=== PATIENT | female | born 1975 | race Caucasian/White ===

== ENCOUNTER 2018-05-17 12:29 | Emergency (ER) | payer OTHER ==
--- NOTE | 2018-05-17 13:42 | EDPHY ---
HPI/HX/ROS/PE/MDM Narrative: CHIEF COMPLAINT: Left arm injury HPI: The patient is a 42 y/o female arriving with her complaining of left arm pain secondary to a snowboarding collision this morning at [employer]. She was struck by another snowboarder and landed with her arm below her body. Her pain is localized to her proximal left forearm. She denies striking her head, losing consciousness, weakness, paresthesias, abdominal pain, chest pain, dyspnea, or any other injuries. She is generally healthy. REVIEW OF SYSTEMS: A comprehensive 10 system review of systems is otherwise negative aside from elements mentioned in the history of present illness. PMH: Denies SOCIAL HISTORY: at bedside. Employed. PHYSICAL EXAM: General:Patient is alert, in no acute distress. ENT:Eyes are normal to inspection. ENT inspection normal. Neck: Normal inspection. Full range of motion. Respiratory:No respiratory distress. Cardiovascular: Normal left radial pulse. Normal cap refill. Skin: Normal color. No rash. Warm and dry. Extremities: Left arm: tenderness to proximal radial forearm with overlying ecchymosis, no bony tenderness. Otherwise Normal appearance and full range of motion. No pain with passive/active ROM of hand/wrist. Neuro: Oriented x3. Normal motor function. Normal sensory function. ED Course: This is a healthy 42 y/o female who presents with isolated left forearm pain secondary to a collision and fall while snowboarding this morning at [employer]. She has tenderness along her radial proximal forearm with some overlying ecchymosis. There is no bony tenderness and she has normal motor and sensory function. Forearm x-rays were negative for fracture. Recommended discharge home in sling with standard contusion care and follow up instructions. She declined pain medication. Referral to ortho provided if needed and return precautions discussed. She is comfortable with this plan. MDM: Contusion without evidence of fracture or compartment syndrome. Considered occult radial head fracture, but no TTP in that region. - Data Points Imaging Results: Imaging Impressions Forearm X-Ray 05/17/18 12:38 Impression: Negative. No acute fracture. Imaging: I viewed and interpreted images myself General Time Seen by Provider: 05/17/18 13:33 Initial Vital Signs: Initial Vital Signs Temperature (C) 36.6 C 05/17/18 12:36 Heart Rate 63 05/17/18 12:36 Respiratory Rate 16 05/17/18 12:36 Blood Pressure 151/86 H 05/17/18 12:36 O2 Sat (%) 98 05/17/18 12:36 O2 Delivery Mode Room Air Allergies/Adverse Reactions: No Known Allergies Allergy (Unverified 05/17/18 12:38) Home Medications: Medication Instructions Recorded NK [No Known Home Meds] 05/17/18 Departure - Departure Disposition: Home, Routine, Self-Care Clinical Impression: Arm contusion Condition: Good Instructions: Contusion in Adults (ED) Additional Instructions: 1. Ibuprofen and Tylenol as directed on the packaging as needed for pain over the next few days. 2. Apply ice to sore areas intermittently over the next 1-2 days if helpful for pain. 3. Wear sling for comfort. 4. Follow up with orthopedist for unimproved symptoms over the next week. 5. Return to the ED for severe pain, weakness or numbness in your fingers, or other worsening of condition. Referrals: Sarbjit Gutierrez MD [Medical Doctor] - As per Instructions Report Scribed for: Noel Lagos Report Scribed by: Kristi Man Date of Report: 05/17/18 Time of Report: 13:48 Physician Review and Approval Statement: Portions of this note were transcribed by an ED scribe. I personally performed the history, physical exam, and medical decision making; and confirm the accuracy of the information in the transcribed note.
[2018-05-17 14:06] VITALS: BP 112/56
== END 2018-05-17 14:04 | disposition home or self-care (01) ==
DX: S50.12XA Contusion of left forearm, initial encounter (principal); V00.318A Other snowboard accident, initial encounter; Y93.23 Activity, snow (alpine) (downhill) skiing, snowboarding, sledding, tobogganing and snow tubing; Y92.838 Other recreation area as the place of occurrence of the external cause; Y99.9 Unspecified external cause status
CPT/HCPCS: A4565